=== PATIENT | male | born 1955 | race Caucasian/White ===

== ENCOUNTER 2018-03-11 08:53 | Emergency (ER) | payer BC ==
[2018-03-11 09:11] VITALS: BP 117/87
--- NOTE | 2018-03-11 09:26 | UC ---
Abdominal Pain Female HPI - History of Current Complaint Chief Complaint: UCUpperExtremity Stated Complaint: SKIN COMPLAINT (LT HAND) Time Seen by Provider: 03/11/18 09:15 Onset/Duration: Gradual Onset Pain Intensity: 0 Allergies/Adverse Reactions: Allergies Allergy/AdvReac Type Severity Reaction Status Date / Time No Known Allergies Allergy Verified 11/09/16 08:10 Home Medications: Home Medications Levocetirizine Dihydrochloride [Xyzal Allergy 24Hr] 5 mg PO DAILY 03/11/18 [ History Confirmed 03/11/18] Neomycin/Bacitracin/Polymyxinb [Neosporin Ointment] 1 gm TOPICAL Q4H 03/11/18 [ History Confirmed 03/11/18] PMH/Surg Hx/FS Hx/Imm Hx - Surgical History Surgical History: None - Family History Known Family History: Positive: Hypertension Negative: Cardiac Disease, Diabetes, Respiratory Disease - Social History Alcohol Use: Occasionally Substance Use Type: None Smoking Status (MU): Never Smoked Tobacco - Immunization History Most Recent Influenza Vaccination: [id number] Physical Exam Vital Signs: Initial Vital Signs Temp 36.3 C 03/11/18 09:02 Pulse 59 03/11/18 09:02 Resp 15 03/11/18 09:02 BP 117/87 03/11/18 09:02 Pulse Ox 100 03/11/18 09:02 Discharge - Sign-Out/Discharge Documenting (check all that apply): Discharge/Admit/Transfer - Discharge Plan Condition: Good Disposition: HOME Prescriptions: Cephalexin CAP* [Keflex CAP*] 500 mg PO QID #40 cap Patient Education Materials: Cellulitis (ED) Referrals: Christine Norris MD [Primary Care Provider] - Additional Instructions: If the lesion does not improve in 10 days, see security incident response engineer - Billing Disposition and Condition Condition: GOOD Disposition: HOME
--- NOTE | 2018-03-11 09:30 | UC ---
Hand/Wrist HPI - HPI Summary HPI Summary: 62 year old male with no significant pmhx here with left hand pain. He sustained abrasion while cleaning his gutter two months ago. Lex lombardi has been cleaning it with peroxide and using topical abxHe reports he had swelling with no draining from the lesion but yesterday he applied butter and bread that popped the lesion. . Today he comes here because the lesion broke open and pharmacist told him to come to the . NO fever or chills. - History Of Current Complaint Chief Complaint: UCUpperExtremity Stated Complaint: SKIN COMPLAINT (LT HAND) Time Seen by Provider: 03/11/18 09:15 Onset/Duration: Gradual Onset Severity Currently: None Pain Intensity: 0 Character Of Pain: Sharp Aggravating Factor(s): Movement Alleviating Factor(s): Other Associated Signs And Symptoms: Positive: Negative - Allergies/Home Medications Allergies/Adverse Reactions: Allergies Allergy/AdvReac Type Severity Reaction Status Date / Time No Known Allergies Allergy Verified 11/09/16 08:10 Home Medications: Home Medications Levocetirizine Dihydrochloride [Xyzal Allergy 24Hr] 5 mg PO DAILY 03/11/18 [ History Confirmed 03/11/18] Neomycin/Bacitracin/Polymyxinb [Neosporin Ointment] 1 gm TOPICAL Q4H 03/11/18 [ History Confirmed 03/11/18] PMH/Surg Hx/FS Hx/Imm Hx Previously Healthy: No - Surgical History Surgical History: None - Family History Known Family History: Positive: Hypertension Negative: Cardiac Disease, Diabetes, Respiratory Disease - Social History Alcohol Use: Occasionally Substance Use Type: None Smoking Status (MU): Never Smoked Tobacco - Immunization History Most Recent Influenza Vaccination: [id number] Review of Systems Constitutional: Negative Skin: Other - Skin abrasion Is Patient Immunocompromised?: No All Other Systems Reviewed And Are Negative: Yes Physical Exam Triage Information Reviewed: Yes Appearance: Well-Appearing, No Pain Distress Vital Signs: Initial Vital Signs Temp 36.3 C 03/11/18 09:02 Pulse 59 03/11/18 09:02 Resp 15 03/11/18 09:02 BP 117/87 03/11/18 09:02 Pulse Ox 100 03/11/18 09:02 Vital Signs Reviewed: Yes ENT Exam: Normal Neck exam: Normal Respiratory Exam: Normal Cardiovascular Exam: Normal Musculoskeletal Exam: Normal - Left hand with lesion with mild erythema, no abscess Hand/Wrist Course/Dx - Differential Dx/Diagnosis Differential Diagnosis/HQI/PQRI: Abrasion, Cellulitis, Infection Provider Diagnoses: Infected hand abrasion. patient does not have picture to visualize what the lesion looked like before it bursted. Bullous vs. abscess. Will try with course of abx and instructed patient o follow up with dermatology if lesion does not subside. Discharge - Sign-Out/Discharge Documenting (check all that apply): Discharge/Admit/Transfer - Discharge Plan Condition: Good Disposition: HOME Prescriptions: Cephalexin CAP* [Keflex CAP*] 500 mg PO QID #40 cap Patient Education Materials: Cellulitis (ED) Referrals: Yannick Simmons MD [Medical Doctor] - Christine Norris MD [Primary Care Provider] - Additional Instructions: If the lesion does not improve in 10 days, see strategic client executive - Billing Disposition and Condition Condition: GOOD Disposition: HOME
== END 2018-03-11 09:32 | disposition home or self-care (01) ==
LOC: UCCORT 08:53
DX: S60.512A Abrasion of left hand, initial encounter (principal); L08.9 Local infection of the skin and subcutaneous tissue, unspecified; W26.8XXA Contact with other sharp object(s), not elsewhere classified, initial encounter; Y93.89 Activity, other specified; Y92.9 Unspecified place or not applicable
CPT/HCPCS: 99212; G0463